=== PATIENT | male | born 1960 | race Caucasian/White ===

== ENCOUNTER 2024-04-03 00:35 | Inpatient (IN) | payer OTHER, SELFPAY ==
[2024-04-03] VITALS (18 sets, daily range): BP systolic 113–154; BP diastolic 75–91; PULSE 72–100; RESP 14–20; TEMP 36.4–37.4; O2SAT 92–98; BMI 29.8
--- NOTE | 2024-04-03 | ECG_ITS ---
Test Reason : CHEST PAIN Blood Pressure : / mmHG Vent. Rate : 084 BPM Atrial Rate : 084 BPM P-R Int : 148 ms QRS Dur : 088 ms QT Int : 352 ms P-R-T Axes : 038 -24 037 degrees QTc Int : 415 ms Normal sinus rhythm Normal ECG No previous ECGs available Referred By: Generic ED Physician Electronically Signed By:LICHA HILL MD
--- NOTE | ~2024-04-03 | US_ITS ---
EXAMINATION: US ABDOMEN LIMITED CLINICAL INFORMATION: Pain.. COMPARISON: None available. TECHNIQUE: Real-time imaging of the right upper quadrant abdominal viscera. FINDINGS: PANCREAS: Not assessed LIVER: The visualized liver is normal in appearance. GALLBLADDER: Multiple gallstones are noted including a 2.5 cm calculus at the neck of the gallbladder. There is a small to moderate amount of faintly echogenic nonshadowing material within the gallbladder as well consistent with sludge. There is gallbladder wall thickening up to 4 mm. A positive Camp's sign was reported by the special procedures technologist. COMMON BILE DUCT: Normal in caliber measuring 0.5 cm in diameter. RIGHT KIDNEY: Not assessed. FREE FLUID: None. US/US abdomen limited IMPRESSION: Cholelithiasis with gallbladder wall thickening and a positive Camp's sign. These findings are concerning for acute cholecystitis.
--- NOTE | ~2024-04-03 | CT_ITS ---
EXAMINATION: CT ABDOMEN AND PELVIS WITH CONTRAST CLINICAL INFORMATION: Right upper quadrant pain. COMPARISON: None available. TECHNIQUE: Multidetector volumetric images were obtained from the superior aspect of the liver through the pubic symphysis following administration 85 mL of Omnipaque 350 intravenous contrast. Sagittal and coronal reformatted images were obtained on the technologist's workstation. Oral contrast: No This CT examination was performed using dose optimization techniques as appropriate, variously including the following: *Automated exposure control *Adjustment of mA and/or kV according to patient size (this includes techniques or standardized protocols for targeted exams where dose is matched to indication/reason for exam; i.e. extremities or head) *Use of iterative reconstruction technique DLP: 650 mGy-cm FINDINGS: LUNG BASES: The visualized lung bases are unremarkable. LIVER, GALLBLADDER, AND BILIARY TREE: The liver is normal in size, shape, and attenuation. No focal hepatic lesion or biliary ductal dilatation is present. There are a few gallstones within a mildly distended gallbladder with a 6 mm calculus at the neck of the gallbladder. PANCREAS: Unremarkable. SPLEEN: Unremarkable. ADRENAL GLANDS: Unremarkable. KIDNEYS AND URETERS: The kidneys are normal in size, shape, and attenuation. No hydronephrosis, hydroureter, or calculi seen. No perinephric stranding. BLADDER: Unremarkable. GASTROINTESTINAL TRACT: There are diverticula of the descending and sigmoid colon without diverticulitis. The appendix is visualized and is within normal limits. ABDOMINAL WALL: No significant hernia is appreciated. LYMPH NODES: Normal. VASCULAR: Mild atherosclerotic plaque of the abdominal aorta and proximal branches. PELVIC VISCERA: Unremarkable. OSSEOUS STRUCTURES: Unremarkable. CT/CT abdomen pelvis w IV con IMPRESSION: 1. Cholelithiasis with a 6 mm calculus at the neck of the gallbladder and mild gallbladder distention. Cholecystitis considered. 2. Diverticulosis of the descending and sigmoid colon without diverticulitis. Fleischner guidelines were followed.
[2024-04-03 01:04] LABS: MANUAL DIFF FLAG NO
[2024-04-03 01:18] LABS: Basophils Absolute Auto 0.1 X10*3/uL (0.0-0.2); Basophils Percent Auto 0.7 % (0-2); Eosinophils Absolute Auto 0.5 X10*3/uL (0.0-0.4); Eosinophils Percent Auto 4.6 % (0-4); Hematocrit 44.8 % (42.0-52.0); Hemoglobin 15.7 g/dl (14.0-18.0); Imm Gran Abs Auto 0.07 X10*3/uL (0.00-0.03); Imm Gran Pct Auto 0.7 % (0.0-0.4); Lymphocytes Absolute Auto 1.7 X10*3/uL (1.2-4.9); Lymphocytes Percent Auto 17.4 % (20-40); Mean Corpuscular Hemoglobin 31.8 pg (27.0-33.0); Mean Corpuscular Volume 90.9 fL (80.0-98.0); Monocytes Absolute Auto 1.4 X10*3/uL (0.1-1.2); Monocytes Percent Auto 14.2 % (2-11); Neutrophils Absolute Auto 6.2 x10*3/uL (2.0-8.3); Neutrophils Percent Auto 62.4 % (45-73); Platelet Count 251 X10*3/uL (160-400); Red Blood Count 4.93 X10*6/uL (4.60-5.80); Red Cell Distribution Width 12.8 % (11.0-16.0); White Blood Count 9.9 X10*3/uL (4.8-10.8)
[2024-04-03 01:23] LABS: Anion Gap 16 (12-20); Blood Urea Nitrogen 17 mg/dL (9-16); Calcium 9.9 mg/dL (8.4-10.2); Carbon Dioxide 24 mmol/L (22-29); Chloride 104 mmol/L (96-108); Estimated Glomerular Filt Rate > 60; Glucose Random 128 mg/dL (60-115); Potassium 4.2 mmol/L (3.3-5.1); Sodium 140 mmol/L (135-145)
[2024-04-03 01:32] LABS: Troponin-I High Sensitivity 7.2 ng/L (<3.5-35.0)
[2024-04-03 01:42] LABS: Alanine Aminotransferase 37 U/L (0-40); Albumin Level 4.1 g/dL (3.5-5.0); Alkaline Phosphatase 74 U/L (39-117); Aspartate Amino Transferase 25 U/L (5-37); Bilirubin Direct 0.2 mg/dL (0.0-0.5); Bilirubin Total 0.5 mg/dL (0.0-1.0); Ethanol < 10 mg/dL; Lipase 52 U/L (8-78); Total Protein 7.8 g/dL (6.5-8.0)
[2024-04-03] MEDS: iohexoL 350 MG/ML 100 ML INFUS..BTL 85 ML IV (01:52)
--- NOTE | 2024-04-03 01:56 | ED.CHESTPAIN ---
HPI - Chest Pain General Chief Complaint: Chest Pain Stated Complaint: cp Time Seen by Provider: 04/03/24 01:10 Source: patient Mode of arrival: EMS Limitations: no limitations History of Present Illness HPI narrative: 63 yo male with PMH of HTN, no prior surgeries here with c/o 2 days of intermittent RUQ pain radiates across abdomen to the back resolved throughout the day on Monday took some benadryl to sleep then woke up again with the pain around midnight. He has some nausea. He drinks heavily on the weekends MD complaint: chest pain (epigastric pain) Onset (ago): day(s) (2) Timing of current episode: episodic Prior episodes: No Onset: during rest Pain location: epigastric Pain radiation: back and abdomen Severity: moderate Quality: tightness and sharp Relieving factors: nothing Exacerbating factors: nothing Associated symptoms: nausea Treatment prior to arrival: none Related Data Allergies Allergy/AdvReac Type Severity Reaction Status Date / Time lamictal Allergy Severe Rash Uncoded 04/03/24 01:29 Review of Systems Review of Systems: Constitutional : No Weight loss, No Fever, No Chills ENT/Mouth : No sore throat, No Rhinorrhea Eyes: No Swelling, No Redness Cardiovascular : pos Chest Pain, No SOB, NoEdema Respiratory : No Cough, No Sputum, No Wheezing Gastrointestinal : Positive Nausea, no Vomiting, no Diarrhea, positive abdominal Pain, No Hematochezia, No Melena Genitourinary : No Dysuria, No Urinary Frequency, No Hematuria, No Urgency Musculoskeletal : No joint pain, No Myalgias, No Joint Swelling Skin : No Skin Lesions, No rash Neuro : No Weakness, No Numbness, No Dizziness, No Headache Psych : No Anxiety/Panic, No Depression Heme/Lymph: No Bruising, No Lymphadenopathy Endocrine : No Polyuria, No Polydipsia All other systems reviewed and are negative. [facility] Past Medical History Attestation statement: The following information was validated with the patient. Medical History HTN (hypertension) Social History Social History (Updated 04/03/24 @ 02:29 by Bettie Kee DO) Alcohol intake: current Patient Tobacco Use Status: Never used Tobacco Use of substances other than those prescribed or required for medical reasons: No Advance Directives: No Advance Directives Information Provided: No Physical Exam Vital Signs: Vital Signs: Last Vital Signs Temp 98.6 F 04/03/24 04:38 Pulse 72 04/03/24 04:38 Resp 16 04/03/24 04:38 BP 122/86 04/03/24 04:38 Pulse Ox 96 04/03/24 04:38 O2 Del Method Room Air 04/03/24 04:38 BMI result Body Mass Index 29.8 Appearance: Alert. Oriented X3. No acute distress. Eyes: Pupils equal, round and reactive to light. ENT: Pharynx normal. Neck: Normal inspection. Neck supple. CVS: Normal heart rate and rhythm. Pulses normal. Respiratory: No respiratory distress. Breath sounds normal. Abdomen: Soft and moderate RUQ and epigastric pain + fernandez's sign Skin: Skin warm and dry. Normal skin color. Normal skin turgor. Extremities: No lower extremity edema. No calf ttp Neuro: Oriented X 3. No motor deficit. No sensory deficit. Medications Administered Discontinued Medications Generic Name Dose Route Start Last Admin Trade Name Freq PRN Reason Stop Dose Admin Sodium Chloride 1,000 mls @ 999 mls/hr 04/03/24 01:26 04/03/24 03:03 Ns IV 04/03/24 02:26 Infused .Q1H1M ONE Infusion Piperacillin Sod/Tazobactam 50 mls @ 100 mls/hr 04/03/24 04:11 04/03/24 04:31 Sod 3.375 gm/ Sodium Chloride IV 04/03/24 04:40 100 mls/hr ONCE ONE Administration Iohexol 85 ml 04/03/24 01:52 04/03/24 01:52 Iohexol 350 Mg/Ml 100 Ml Infus..Btl IV 04/03/24 01:53 85 ml ONCE ONE Administration Morphine Sulfate 4 mg 04/03/24 01:26 04/03/24 02:03 Morphine Sulfate 4 Mg/Ml Cartridge IVPUSH 04/03/24 01:27 4 mg ONCE ONE Administration Protocol Ondansetron HCl 4 mg 04/03/24 01:26 04/03/24 02:02 Ondansetron Hcl 4 Mg/2 Ml Vial IVPUSH 04/03/24 01:27 4 mg ONCE ONE Administration Medical Decision Making Medical Decision Making MDM Narrative: 63 yo male with hx of HTN here with on and off upper abdominal pain radiating to the back since Monday now worse since midnight at this time has reproduceable upper abdominal pain at this time basic labs, EKG, troponin x 1, CT scan of abdomen for pancreatitis, biliary colic, PUD. IV morphine for pain Differential Diagnosis Differential Diagnoses: The differential diagnosis associated with the presentation includes pancreatitis, PUD, biliary colic, atypical ACS Admission/Observation Consideration of admission/observation: Escalation of care including admission/observation considered will admit for cholecystitis Consult Healthcare Provider Management of the patient was discussed with: Continuing Education Specialist (Dr. Shaver to admit) Lab Data MDM Lab Attestation statement: I reviewed the patient's lab results. 04/03/24 01:00 04/03/24 01:00 Labs: Lab Results 04/03/24 Range/Units 01:00 WBC 9.9 (4.8-10.8) X10*3/uL RBC 4.93 (4.60-5.80) X10*6/uL Hgb 15.7 (14.0-18.0) g/dl Hct 44.8 (42.0-52.0) % MCV 90.9 (80.0-98.0) fL MCH 31.8 (27.0-33.0) pg MCHC 35.0 (31.0-36.0) g/dl RDW 12.8 (11.0-16.0) % Plt Count 251 (160-400) X10*3/uL MPV 11.0 (9.4-12.4) fL Immature Gran % (Auto) 0.7 H (0.0-0.4) % Neut % (Auto) 62.4 (45-73) % Lymph % (Auto) 17.4 L (20-40) % [place] % (Auto) 14.2 H (2-11) % Eos % (Auto) 4.6 H (0-4) % Baso % (Auto) 0.7 (0-2) % Lymph # (Auto) 1.7 (1.2-4.9) X10*3/uL [place] # (Auto) 1.4 H (0.1-1.2) X10*3/uL Eos # (Auto) 0.5 H (0.0-0.4) X10*3/uL Baso # (Auto) 0.1 (0.0-0.2) X10*3/uL Abs Immat Gran (auto) 0.07 H (0.00-0.03) X10*3/uL Absolute Neuts (auto) 6.2 (2.0-8.3) x10*3/uL Absolute Nucleated RBC 0.000 (0.0-0.012) X10*3/uL Nucleated RBC % (auto) 0.0 (0.0-0.2) /100WBC Sodium 140 (135-145) mmol/L Potassium 4.2 (3.3-5.1) mmol/L Chloride 104 (96-108) mmol/L Carbon Dioxide 24 (22-29) mmol/L Anion Gap 16 (12-20) BUN 17 H (9-16) mg/dL Creatinine 1.13 (0.5-1.4) mg/dL Estim Creat Clear Calc TNP Estimated GFR > 60 Random Glucose 128 H (60-115) mg/dL Calcium 9.9 (8.4-10.2) mg/dL Total Bilirubin 0.5 (0.0-1.0) mg/dL Direct Bilirubin 0.2 (0.0-0.5) mg/dL AST 25 (5-37) U/L ALT 37 (0-40) U/L Alkaline Phosphatase 74 (39-117) U/L Troponin I High Sens 7.2 (<3.5-35.0) ng/L Total Protein 7.8 (6.5-8.0) g/dL Albumin 4.1 (3.5-5.0) g/dL Lipase 52 (8-78) U/L Ethyl Alcohol < 10 mg/dL Independent Interpretation I performed an independent interpretation of an: EKG, Ultrasound (+ cholecystitis) and CT Scan (+ kacy) Interpretation: Rate: 84 Rhythm: NSR [place]: normal Normal P waves. Normal DOMINGO. Normal QRS complex. ST T wave: normal no CABRERA qTC: 415 prior studies: no acute ischemia The study has been interpreted contemporaneously by me. . Radiology Impression Discussion of test interpretation with radiology: I have reviewed the radiologist's reading. Independent Historian Clinical information obtained from an independent historian. History obtained from or confirmed by: EMS Critical Care Time Critical Care Time Critical Care Time: Yes Total Critical Care Time: 45 Attestation: repeat IV morphine with improvement in pain, consult, admission I attest to this time spent taking care of the patient Discharge Plan Discharge Clinical Impression: Acute cholecystitis Patient Disposition: Admitted As Inpatient Print Language: Polish
[2024-04-03] MEDS: 0.9 % Sodium Chloride 1,000 ML 999 ML IV (02:02)
[2024-04-03] MEDS: ondansetron HCL 4 MG/2 ML VIAL IVPUSH (02:02)
[2024-04-03] MEDS: Morphine Sulfate 4 MG/ML CARTRIDGE IVPUSH ×4 (02:03→13:36)
[2024-04-03] MEDS: Piperacillin Sodium/Tazobactam 3.375 GM in 0.9 % Sodium Chloride 50 ML IV ×3 (04:31→21:37)
[2024-04-03 05:20] LABS: INTERNATIONAL NORM RATIO 1.1 (0.9-1.1); Prothrombin Time 13.8 SEC (11.1-13.3)
[2024-04-03] MEDS: 0.9 % Sodium Chloride 1,000 ML 100 ML IVCONT ×2 (06:15→18:32)
--- OUTSIDE RECORDS SUMMARY | 2024-04-03 06:50 | XMS_ITS | Patient Health Record ---
Author Organization [facility] [place] Address [address] [place], [place] [id number] Care Team Providers Care Soap Boiler Name Role Phone Tomas Walker Primary Care Provider Horace Talbert Unavailable [phone] ALLERGIES Allergen (clinical drug ingredient) Drug/Non Drug Allergy documented on EMR Reaction Allergy Type Onset Date Status lamotrigine Lamotrigine rash Drug Allergy Act atiya REASON FOR REFERRAL No Information MEDICATIONS Medication SIG (Take, Route, Frequency, Duration) Notes Start Date End Date Status Omeprazole 20 MG 1 capsule Orally Onc e a day for 30 day(s) Active Fluticasone Propionate 50 MCG/ACT 1 spray in each nostril Nasally Once a day for 30 day(s) Active IMMUNIZATIONS Vaccine Route Administration Date Status Comme nts Flucelvax Quadrivelant (Commerical) Unknown 11/21/2018 Administered SOCIAL HISTORY Sex Assigned At : Social History Observation Description Sex Assigned At Unknown PROBLEMS Problem Type ICD Code Onset Dates Problem Status W/U Status Risk SNOMED Code Notes Problem Other viral agents as the cause of diseases classified elsewhere (B97.89) Active confirmed 788733722 Problem Acute upper respiratory infection, unspecified (J06.9) Active confirmed 611324316 Problem Cough (R05) Active confirmed 27066824 Problem Heartburn (R12) Active confirmed 151166 00 Problem Hypoxia (R09.02) Active confirmed 36123 6002 Problem History of tobacco use (Z87.891) Active confirmed 331420211 Problem Essential hypertension (I10) Active confirmed 02717681 Problem Gastroesophageal reflux disease, esophagitis presence not specified (K21.9) Active confirmed 297373532 PLAN OF TREATMENT No Information Insurance Providers Payer Name Payer Address Payer Phone Subscriber Number Group Number Insured Name Patient Relationship to Insured Coverage Start Date Coverage End Date [place] [facility] [place] [address] [address] [place] [phone] [id number] Harris Osman Self - patient is the insured MEDICAL (GENERAL) HISTORY Medical History History ICD Code COPD, no prior PFTs available Nephrolithiasis Obesity Insomnia GERD
--- NOTE | 2024-04-03 08:09 | PM.HPGS ---
History of Present Illness History of Present Illness Date of Service: 04/03/24 Chief complaint: Abdo pain Narrative: Harris Zepeda is a 63 year old male who presents with progressive worsening right upper quadrant pain over the last 2 days time. Because of worsening of symptoms, he presents to the emergency department. Extensive workup including sonogram demonstrates findings consistent with acute cholecystitis. Patient has never been jaundiced before. He otherwise has no prior GI issues or complaints. Chart was reviewed and patient evaluated PMFSH Past Medical History Medical History HTN (hypertension) Social History Social History (Updated 04/03/24 @ 02:29 by Bettie Kee DO) Alcohol intake: current Patient Tobacco Use Status: Never used Tobacco Use of substances other than those prescribed or required for medical reasons: No Advance Directives: No Advance Directives Information Provided: No Meds Allergies Allergy/AdvReac Type Severity Reaction Status Date / Time lamictal Allergy Severe Rash Uncoded 04/03/24 01:29 Active Medications: Current Medications Acetaminophen (Acetaminophen 325 Mg Tablet) 650 mg PO Q6H PRN PRN Reason: Pain, Mild (Pain Scale 1-3) Enoxaparin Sodium (Enoxaparin Sodium 40 Mg/0.4 Ml Syringe) 40 mg SUBCUT Q24H MARKUS Sodium Chloride (Ns) 1,000 mls @ 100 mls/hr IVCONT .Q10H MARKUS Last Admin: 04/03/24 06:15 Dose: 100 mls/hr Sodium Chloride (Ns) 1,000 mls @ 100 mls/hr IVCONT .Q10H MARKUS Piperacillin Sod/Tazobactam (Sod 3.375 gm/ Sodium Chloride) 50 mls @ 100 mls/hr IV Q6H MARKUS Morphine Sulfate (Morphine Sulfate 4 Mg/Ml Cartridge) 4 mg IVPUSH RQ4H PRN; Protocol PRN Reason: Pain, Severe (Pain Scale 7-10) Ondansetron HCl (Ondansetron Hcl 4 Mg/2 Ml Vial) 4 mg IVPUSH Q8H PRN PRN Reason: Nausea and Vomiting Sodium Chloride (0.9 % Sodium Chloride Flush 3 Ml Syringe) 3 ml IVFLUSH QSHIFT MARKUS Physical Exam Vital Signs: Vital Signs: Last Vital Signs Temp 98.1 F 04/03/24 06:12 Pulse 79 04/03/24 06:12 Resp 16 04/03/24 06:12 BP 142/83 H 04/03/24 06:12 Pulse Ox 92 04/03/24 06:12 O2 Del Method Room Air 04/03/24 06:12 BMI result Body Mass Index 29.8 Eyes: Other: Anicteric Chest: Other: Chest breath sounds bilaterally, HS 1 in 2 GI: Other: Corpulent abdomen. Marked right upper quadrant tenderness and positive Camp sign Results Results Labs: Short CBC 04/03/24 Range/Units 01:00 WBC 9.9 (4.8-10.8) X10*3/uL Hgb 15.7 (14.0-18.0) g/dl Hct 44.8 (42.0-52.0) % Plt Count 251 (160-400) X10*3/uL BMP 04/03/24 01:00 Sodium 140 Potassium 4.2 Chloride 104 Carbon Dioxide 24 BUN 17 H Creatinine 1.13 Calcium 9.9 Liver Function 04/03/24 Range/Units 01:00 Total Bilirubin 0.5 (0.0-1.0) mg/dL Direct Bilirubin 0.2 (0.0-0.5) mg/dL AST 25 (5-37) U/L ALT 37 (0-40) U/L Alkaline Phosphatase 74 (39-117) U/L Albumin 4.1 (3.5-5.0) g/dL Assessment and Plan (1) Acute cholecystitis: Status: Acute Plan Patient has the diagnosis of acute cholecystitis. Risks, benefits, and alternatives of laparoscopic possible open cholecystectomy reviewed with the patient and included but not limited to bleeding, infection, recurrence of symptoms, numbness, pain, scarring, bowel or bile duct injury or leak and the patient wishes to proceed. All questions answered. Arrangements were made for the procedure for today as an add on. Quality Stroke Does the patient have a stroke diagnosis?: No VTE Prior VTE?: No VTE Risk Level:: Surgical - low VTE Device Contraindication: N/A - Device Ordered VTE Drug Contraindication: N/A - Med Ordered Procedures Date of Service Date of Service: 04/03/24
--- NOTE | 2024-04-03 09:31 | PC.NURSE ---
pt is alert and oriented, skin pwd, respirations even and unlabored, pt reports right upper/mid abd pain / no nausea at this time, vs stable, plan for the pt to go to surgery but no time has been assigned
[2024-04-03 10:40] LABS: Creatinine Clr Calc Pharmacy 98.3; Estimated Glomerular Filt Rate > 60
--- NOTE | 2024-04-03 10:41 | PHA.MEDREC ---
Pharmacy Consult ? Medication Reconciliation Pharmacy has completed the medication reconciliation. Spoke with patient to confirm medications. Pt showed us a list he had on his phone.
--- NOTE | 2024-04-03 12:22 | MHC.CM.PN ---
Met with patient in regards from d/c planning. Patient lives with his and 2 grown special needs children, ambulates independently and had no services prior to coming to the hospital. No services anticipated to be needed becuase patient is not homebound. PCP verified. Patient's will transport patient home when medically stable. Continue to monitor for d/c needs.
--- NOTE | 2024-04-03 13:26 | P.CONAN_ITS ---
HPI - Anesthesia Eval Consult details Narrative: for lap cholecystics PMFSH Active Problems Active Problems: All Active Problems Acute cholecystitis (Acute) Past Medical History Medical History HTN (hypertension) Family History Family history of problems with anesthesia: No Surgical History History of Problems with Anesthesia: No Social History Social History Household Members: Spouse Housing: House Do you presently have visiting nurse or other home services: No Alcohol intake: current Patient Tobacco Use Status: Never used Tobacco Use of substances other than those prescribed or required for medical reasons: No Have you been hit, kicked, punched, or otherwise hurt by someone within the past year? If so, by whom?: No Do you feel safe in your current relationship?: Yes Is there a partner from a previous relationship who is making you feel unsafe now?: No Are you made to feel afraid or neglected: No Advance Directives: No Advance Directives Information Provided: No Do you have a plan to hurt others: No Plan Recently lost weight without trying: No Nutrition Risks: No Nutritional Risk Poor oral hygiene: No service: No Meds Allergies Allergy/AdvReac Type Severity Reaction Status Date / Time lamictal Allergy Severe Rash Uncoded 04/03/24 01:29 Active Medications: Current Medications Acetaminophen (Acetaminophen 325 Mg Tablet) 650 mg PO Q6H PRN PRN Reason: Pain, Mild (Pain Scale 1-3) Enoxaparin Sodium (Enoxaparin Sodium 40 Mg/0.4 Ml Syringe) 40 mg SUBCUT Q24H [facility] Last Admin: 04/03/24 09:07 Dose: Not Given Sodium Chloride (Ns) 1,000 mls @ 100 mls/hr IVCONT .Q10H [facility] Last Admin: 04/03/24 06:15 Dose: 100 mls/hr Sodium Chloride (Ns) 1,000 mls @ 100 mls/hr IVCONT .Q10H [facility] Last Admin: 04/03/24 09:06 Dose: Not Given Piperacillin Sod/Tazobactam (Sod 3.375 gm/ Sodium Chloride) 50 mls @ 100 mls/hr IV Q6H [facility] Last Admin: 04/03/24 10:30 Dose: 100 mls/hr Morphine Sulfate (Morphine Sulfate 4 Mg/Ml Cartridge) 4 mg IVPUSH RQ4H PRN; Protocol PRN Reason: Pain, Severe (Pain Scale 7-10) Last Admin: 04/03/24 09:24 Dose: 4 mg Ondansetron HCl (Ondansetron Hcl 4 Mg/2 Ml Vial) 4 mg IVPUSH Q8H PRN PRN Reason: Nausea and Vomiting Sodium Chloride (0.9 % Sodium Chloride Flush 3 Ml Syringe) 3 ml IVFLUSH QSHIFT [facility] Last Admin: 04/03/24 09:03 Dose: Not Given Home Medications ?Medication ?Instructions ?Recorded ?Confirmed ?Last Taken ?Type aspirin 81 mg tablet,delayed 81 mg PO DAILY 04/03/24 04/03/24 Unknown History release atorvastatin 80 mg tablet 80 mg PO QA 04/03/24 04/03/24 Unknown History famotidine 40 mg tablet 40 mg PO BEDTIME 04/03/24 04/03/24 Unknown History lisinopril 20 1 tab PO QA 04/03/24 04/03/24 Unknown History mg-hydrochlorothiazide 25 mg tablet omeprazole 40 mg capsule,delayed 40 mg PO QA 04/03/24 04/03/24 Unknown History release Exam Height,Weight and Vital Signs: Height 5 ft 10 in Weight 94.347 kg Last Vital Signs Temp 98.1 F 04/03/24 06:12 Pulse 72 04/03/24 09:23 Resp 20 04/03/24 09:23 BP 154/91 H 04/03/24 09:23 Pulse Ox 96 04/03/24 09:23 O2 Del Method Room Air 04/03/24 09:23 Pertinent Lab Results Pertinent Lab Results: Laboratory Tests 04/03/24 04/03/24 04/03/24 01:00 05:07 10:17 WBC 9.9 RBC 4.93 Hgb 15.7 Hct 44.8 MCV 90.9 MCH 31.8 MCHC 35.0 RDW 12.8 Plt Count 251 MPV 11.0 Immature Gran % (Auto) 0.7 H Neut % (Auto) 62.4 Lymph % (Auto) 17.4 L [place] % (Auto) 14.2 H Eos % (Auto) 4.6 H Baso % (Auto) 0.7 Lymph # (Auto) 1.7 [place] # (Auto) 1.4 H Eos # (Auto) 0.5 H Baso # (Auto) 0.1 Abs Immat Gran (auto) 0.07 H Absolute Neuts (auto) 6.2 Absolute Nucleated RBC 0.000 Nucleated RBC % (auto) 0.0 PT 13.8 H INR 1.1 Sodium 140 Potassium 4.2 Chloride 104 Carbon Dioxide 24 Anion Gap 16 BUN 17 H Creatinine 1.13 0.91 Estim Creat Clear Calc TNP 98.3 Estimated GFR > 60 > 60 Random Glucose 128 H Calcium 9.9 Total Bilirubin 0.5 Direct Bilirubin 0.2 AST 25 ALT 37 Alkaline Phosphatase 74 Troponin I High Sens 7.2 Total Protein 7.8 Albumin 4.1 Lipase 52 Ethyl Alcohol < 10 Airway Mallampati Class: III TM Dist: >3cm Neck ROM: Full Heart: rrr Lungs: cta Assessment and Plan Assessment Anesthesia Assessment: Anesthesia Plan Discussed and Chart Reviewed Final Anesthetic Review Family History of Problems with Anesthesia: No History of Problems with Anesthesia: No NPO: Yes ASA Class: III Final Preanesthetic Review: No Changes in Pt Med Stat, Meds/Allgs Chart Reviewed, Consent Obtained/Reviewed and Anes Risks/Benef Reviewed Patient Risk: Intermediate Procedure Risk: Intermediate Anesthetic Plan Anesthetic Plan: GA Disposition: Standard PACU
--- NOTE | 2024-04-03 13:51 | PC.NURSE ---
Report given to short stay surgery, plan for patient to get cholecystectomy today. Patient medicated with Morphine prior to transfer, patient aware of plan and is cooperative.
--- NOTE | 2024-04-03 14:00 | PM.EVENT ---
Event Note Date of Service: 04/03/24 Event Note: 63-year-old male patient, originally from [place], [place], presenting with complaints of epigastric and right upper quadrant abdominal pain. The pain is associated with nausea without vomiting. He denies fever or chills. The pain persisted and as a result presented to the emergency department for further evaluation. In the emergency department was noted to have a normal WBC however workup with ultrasound and CT abdomen and pelvis revealed a distended mildly thickened gallbladder wall, with a gallstone at the neck of the gallbladder. A sonographic Camp sign was identified. Findings were suggestive of acute cholecystitis due to cholelithiasis. His past medical history significant for hypertension, hypercholesterolemia and GERD. He is allergic to Lamictal (rash). On examination he is alert and awake, in no acute distress, lungs are clear to auscultation bilaterally. Abdomen is mildly distended and tender in the right upper quadrant. There is a positive Camp sign. No scars or hernias are identified. The patient's history, exam, and radiologic studies are consistent with acute cholecystitis due to cholelithiasis. I reviewed the options including non operative with antibiotic treatment verses cholecystectomy. After a review of the procedure, risks, and alternatives, he consents to a laparoscopic or possible open cholecystectomy. He has been added onto the operative schedule for today. Time Spent With Patient Time: Total time managing care of this patient today ____ minutes.
--- NOTE | 2024-04-03 14:10 | P.CONAN_ITS ---
[facility] Active Problems Active Problems: All Active Problems Acute cholecystitis (Acute) Past Medical History Medical History (Updated 04/03/24 @ 14:06 by Mary Starr RN) Finger abrasion HTN (hypertension) Family History Family history of problems with anesthesia: No Surgical History History of Problems with Anesthesia: No Social History Social History Household Members: Spouse Housing: House Do you presently have visiting nurse or other home services: No Alcohol intake: current Alcohol intake frequency: does not drink Patient Tobacco Use Status: Never used Tobacco service: No Meds Allergies Allergy/AdvReac Type Severity Reaction Status Date / Time lamictal Allergy Severe Rash Uncoded 04/03/24 01:29 Active Medications: Current Medications Acetaminophen (Acetaminophen 325 Mg Tablet) 650 mg PO Q6H PRN PRN Reason: Pain, Mild (Pain Scale 1-3) Fentanyl (Fentanyl Citrate/Pf 100 Mcg/2 Ml Vial) 25 mcg IVPUSH Q5M PRN; Protocol PRN Reason: Pain, Moderate(Pain Scale 4-6) Stop: 04/03/24 19:53 Sodium Chloride (Ns) 1,000 mls @ 100 mls/hr IVCONT .Q10H [facility] Last Admin: 04/03/24 06:15 Dose: 100 mls/hr Sodium Chloride (Ns) 1,000 mls @ 100 mls/hr IVCONT .Q10H [facility] Last Admin: 04/03/24 09:06 Dose: Not Given Piperacillin Sod/Tazobactam (Sod 3.375 gm/ Sodium Chloride) 50 mls @ 100 mls/hr IV Q6H [facility] Last Infusion: 04/03/24 12:00 Dose: Infused Morphine Sulfate (Morphine Sulfate 4 Mg/Ml Cartridge) 4 mg IVPUSH RQ4H PRN; Protocol PRN Reason: Pain, Severe (Pain Scale 7-10) Last Admin: 04/03/24 13:36 Dose: 4 mg Ondansetron HCl (Ondansetron Hcl 4 Mg/2 Ml Vial) 4 mg IVPUSH Q8H PRN PRN Reason: Nausea and Vomiting Ondansetron HCl (Ondansetron Hcl 4 Mg/2 Ml Vial) 4 mg IVPUSH ONCE PRN PRN Reason: Nausea and Vomiting Stop: 04/03/24 19:53 Sodium Chloride (0.9 % Sodium Chloride Flush 3 Ml Syringe) 3 ml IVFLUSH QSHIFT [facility] Last Admin: 04/03/24 09:03 Dose: Not Given Home Medications ?Medication ?Instructions ?Recorded ?Confirmed ?Last Taken ?Type aspirin 81 mg tablet,delayed 81 mg PO DAILY 04/03/24 04/03/24 04/02/24 History release atorvastatin 80 mg tablet 80 mg PO QAM 04/03/24 04/03/24 Unknown History famotidine 40 mg tablet 40 mg PO BEDTIME 04/03/24 04/03/24 Unknown History lisinopril 20 1 tab PO QA 04/03/24 04/03/24 Unknown History mg-hydrochlorothiazide 25 mg tablet omeprazole 40 mg capsule,delayed 40 mg PO QA 04/03/24 04/03/24 Unknown History release Exam Height,Weight and Vital Signs: Height 5 ft 10 in Weight 94.347 kg Last Vital Signs Temp 98.4 F 04/03/24 13:55 Pulse 86 04/03/24 13:55 Resp 20 04/03/24 13:55 BP 149/83 H 04/03/24 13:55 Pulse Ox 97 04/03/24 13:55 O2 Del Method Room Air 04/03/24 13:55 Pertinent Lab Results Pertinent Lab Results: Laboratory Tests 04/03/24 04/03/24 04/03/24 01:00 05:07 10:17 WBC ,, , 9.9 RBC 4.93 Hgb 15.7 Hct 44.8 MCV 90.9 MCH 31.8 MCHC 35.0 RDW 12.8 Plt Count 251 MPV 11.0 Immature Gran % (Auto) 0.7 H Neut % (Auto) 62.4 Lymph % (Auto) 17.4 L [place] % (Auto) 14.2 H Eos % (Auto) 4.6 H Baso % (Auto) 0.7 Lymph # (Auto) 1.7 [place] # (Auto) 1.4 H Eos # (Auto) 0.5 H Baso # (Auto) 0.1 Abs Immat Gran (auto) 0.07 H Absolute Neuts (auto) 6.2 Absolute Nucleated RBC 0.000 Nucleated RBC % (auto) 0.0 PT 13.8 H INR 1.1 Sodium 140 Potassium 4.2 Chloride 104 Carbon Dioxide 24 Anion Gap 16 BUN 17 H Creatinine 1.13 0.91 Estim Creat Clear Calc TNP 98.3 Estimated GFR > 60 > 60 Random Glucose 128 H Calcium 9.9 Total Bilirubin 0.5 Direct Bilirubin 0.2 AST 25 ALT 37 Alkaline Phosphatase 74 Troponin I High Sens 7.2 Total Protein 7.8 Albumin 4.1 Lipase 52 Ethyl Alcohol < 10 Airway Mallampati Class: III TM Dist: >3cm Neck ROM: Full Assessment and Plan Assessment Anesthesia Assessment: Anesthesia Plan Discussed and Chart Reviewed Final Anesthetic Review Family History of Problems with Anesthesia: No History of Problems with Anesthesia: No NPO: Yes ASA Class: II and Emergency Final Preanesthetic Review: No Changes in Pt Med Stat, Meds/Allgs Chart Reviewed, Consent Obtained/Reviewed and Anes Risks/Benef Reviewed Patient Risk: Intermediate Procedure Risk: Intermediate Anesthetic Plan Anesthetic Plan: GA Disposition: Standard PACU
--- NOTE | 2024-04-03 16:16 | W.PM.OPN ---
Operative Note Operative Note Date of Service: 04/03/24 Narrative: Preoperative diagnosis: Acute cholecystitis due to cholelithiasis Postoperative diagnosis: Same Procedure: Laparoscopic cholecystectomy Surgeon: Kameron Velásquez MD Clinical Laboratory Director: CHRYSTAL Redmond, SHAHRZAD Lima Anesthesia: General endotracheal Indications for procedure: 63-year-old male patient presenting with complaints of abdominal pain in the epigastrium and right upper quadrant found to have tenderness in the right upper quadrant. Ultrasound and CT confirmed cholelithiasis with stones at the neck of the gallbladder. Patient also had sonographic Camp sign. Operative findings: Acutely inflamed and obstructed gallbladder, with purulent bile. Surrounding phlegmon was noted. Specimen: gallbladder Estimated blood loss: 20 mL Complications: None Drain: DONNA 10. To bulb suctioned Procedure details: Patient was brought to the OR and placed in a supine position. After administering general anesthesia the patient's abdomen was prepped with ChloraPrep and draped in a sterile fashion. A surgical time-out was called the consent confirmed. Patient received preoperative antibiotics and Venodyne boots were in place. Local anesthesia consisting of 0.5% Sensorcaine without epinephrine was infiltrated in a periumbilical region. A 5 mm incision was made above the umbilicus in a transverse fashion. The Veress needle was then inserted while elevating abdominal cavity with towel clips. After positive drop test the abdomen was insufflated to a pressure of 15 mm of mercury. The Veress needle was then removed and a 5 mm trocar inserted. The camera was inserted in the abdomen explored. A 12 mm trocar was then placed in the epigastrium. Two 5 mm trocars placed in the right upper quadrant by the rehabilitation assistant. The patient was placed in reverse Trendelenburg positioning and rotated to the left. The gallbladder was noted to be markedly distended therefore the endoscopic needle was used to drain the gallbladder. This allowed grasping of the gallbladder at the fundus. The gallbladder was then retracted cephalad by the rehabilitation assistant. The infundibulum was then grasped and retracted away from the liver bed, also by the rehabilitation assistant. The Dolphin dissector was then used by the surgeon to dissect the peritoneum off the infundibulum to reveal the junction with the cystic duct. Cystic artery was noted slightly medial and posterior to the cystic duct. After obtaining a critical view the cystic duct was doubly clipped and divided. The cystic artery was then doubly clipped and divided. The gallbladder was then dissected off the liver bed using electrocautery with an L hook. Hemostasis was assured all times using the electrocautery. When the gallbladder is completely dissected off the liver bed was placed in an Endo-Catch bag and brought out through the epigastric incision. The gallbladder was sent to pathology for further examination. The abdomen was then re-examined. The liver bed was irrigated and suctioned dry. No bleeding or bile leak could be identified. A large Javier-Villa drain was then placed at the gallbladder fossa and brought out through the lateral trocar site. This was secured to the skin using a 3-0 nylon suture. This was connected to a small bulb suctioned. CO2 was then evacuated and all trocars removed. Fascia was closed at the epigastric incision using a [id number] 0 Polysorb suture. Skin was closed in all incisions using a subcuticular 4 0 Polysorb suture by both the surgeon and rehabilitation assistant. Sterile dressings consisting of Steri-Strips, 2 x 2 gauze, and Tegaderm were then applied. The patient tolerated the procedure well. Sponge instrument and needle counts reported as correct. The patient was transferred to PACU in stable condition.
[2024-04-03] MEDS: fentaNYL citrate/PF 100 MCG/2 ML VIAL 25 MCG IVPUSH (17:10)
[2024-04-03] MEDS: Atorvastatin Calcium 80 MG TABLET PO (19:58)
[2024-04-03] MEDS: Famotidine 20 MG TABLET 40 MG PO (19:58)
[2024-04-03] MEDS: oxyCODONE HCl Immed Release 5 MG TABLET PO (21:37)
[2024-04-04 03:14] VITALS: BP 119/81; PULSE 93; RESP 18; TEMP 36.7; O2SAT 94
[2024-04-04] MEDS: 0.9 % Sodium Chloride Flush 3 ML SYRINGE IVFLUSH (03:21)
[2024-04-04] MEDS: Piperacillin Sodium/Tazobactam 3.375 GM in 0.9 % Sodium Chloride 50 ML IV ×2 (03:21→10:17)
[2024-04-04] MEDS: 0.9 % Sodium Chloride 1,000 ML 100 ML IVCONT (03:22)
[2024-04-04] MEDS: oxyCODONE HCl Immed Release 5 MG TABLET PO ×3 (03:34→14:18)
[2024-04-04] MEDS: Omeprazole 40 MG CAPSULE.DR PO (05:19)
[2024-04-04 06:38] LABS: MANUAL DIFF FLAG NO
[2024-04-04 06:53] LABS: Basophils Percent Auto 0.1 % (0-2); Hematocrit 42.8 % (42.0-52.0); Hemoglobin 14.4 g/dl (14.0-18.0); Imm Gran Abs Auto 0.09 X10*3/uL (0.00-0.03); Imm Gran Pct Auto 0.6 % (0.0-0.4); Lymphocytes Percent Auto 6.1 % (20-40); Mean Corpuscular HGB Conc 33.6 g/dl (31.0-36.0); Mean Corpuscular Hemoglobin 31.2 pg (27.0-33.0); Mean Corpuscular Volume 92.6 fL (80.0-98.0); Mean Platelet Volume 11.4 fL (9.4-12.4); Monocytes Absolute Auto 1.2 X10*3/uL (0.1-1.2); Monocytes Percent Auto 7.8 % (2-11); Neutrophils Absolute Auto 13.5 x10*3/uL (2.0-8.3); Neutrophils Percent Auto 85.4 % (45-73); Platelet Count 244 X10*3/uL (160-400); Red Blood Count 4.62 X10*6/uL (4.60-5.80); Red Cell Distribution Width 13.2 % (11.0-16.0); White Blood Count 15.8 X10*3/uL (4.8-10.8)
--- NOTE | 2024-04-04 07:45 | PM.PNGS ---
Subjective Subjective Date of Service: 04/04/24 <Chloe Vidales PA-C - Last Filed: 04/04/24 07:48> 04/04/24 <Kameron Velásquez MD - Last Filed: 04/04/24 08:12> Interval history: Sore at incision sites, otherwise feeling much improved. Ambulated for 40 minutes this morning. Tolerating solid diet. Would like to go home. <Chloe Vidales PA-C - Last Filed: 04/04/24 07:48> Physical Exam Vital Signs: Vital Signs: Last Vital Signs Temp 98.1 F 04/04/24 03:14 Pulse 93 04/04/24 03:14 Resp 18 04/04/24 03:14 BP 119/81 04/04/24 03:14 Pulse Ox 94 04/04/24 03:14 O2 Del Method Room Air 04/04/24 03:14 O2 Flow Rate 3 04/03/24 17:25 BMI result Body Mass Index 29.8 <Chloe Vidales PA-C - Last Filed: 04/04/24 07:48> Const: General: comfortable, no acute distress and alert <Chloe Vidales PA-C - Last Filed: 04/04/24 07:48> Orientation/consciousness: patient oriented x3 <PATRICIA Redmond Last Filed: 04/04/24 07:48> Resp: Effort & Inspection: normal respiratory effort <PATRICIA Redmond Last Filed: 04/04/24 07:48> GI: Other: DONNA drain scant sanguineous output <Chloe Vidales PA-C - Last Filed: 04/04/24 07:48> Inspection: Yes distended (mild) and Yes incision (dressings c/d/i) <PATRICIA Redmond Last Filed: 04/04/24 07:48> Palpation (GI): Soft to palpation, Tenderness to palpation present (GI) (mild incisional) and no guarding <PATRICIA Redmond Last Filed: 04/04/24 07:48> Skin: General skin exam: no rashes or lesions noted and no jaundice <PATRICIA Redmond Filed: 04/04/24 07:48> Neuro: General: patient oriented x3 <Chloe Vidales PA-C - Last Filed: 04/04/24 07:48> Objective Data Active Medications Acetaminophen (Acetaminophen 325 Mg Tablet) 650 mg PO Q6H PRN PRN Reason: Pain, Mild (Pain Scale 1-3) Al Hydroxide/Mg Hydroxide (Magnesium Hydrox/Alum Hydrox 30 Ml Oral.Susp) 30 ml PO Q6H PRN PRN Reason: heartburn Atorvastatin Calcium (Atorvastatin Calcium 80 Mg Tablet) 80 mg PO DAILY [facility] Last Admin: 04/03/24 19:58 Dose: 80 mg Documented By: SAMIRA Docusate Sodium (Docusate Sodium 100 Mg Capsule) 100 mg PO BID PRN PRN Reason: Constipation Famotidine (Famotidine 20 Mg Tablet) 40 mg PO BEDTIME [facility] Last Admin: 04/03/24 19:58 Dose: 40 mg Documented By: SAMIRA Hydromorphone HCl (Hydromorphone Hcl 0.5 Mg/0.5 Ml Syringe) 0.5 mg IVPUSH Q4H PRN; Protocol PRN Reason: Pain, Severe (Pain Scale 7-10) Sodium Chloride (Ns) 1,000 mls @ 100 mls/hr IVCONT .Q10H [facility] Last Admin: 04/04/24 03:22 Dose: 100 mls/hr Documented By: KANDI Piperacillin Sod/Tazobactam (Sod 3.375 gm/ Sodium Chloride) 50 mls @ 100 mls/hr IV Q6H [facility] Last Infusion: 04/04/24 04:06 Dose: Infused Documented By: KANDI Lisinopril (Lisinopril 20 Mg Tablet) 20 mg PO DAILY [facility]; Protocol Melatonin (Melatonin 3 Mg Tablet) 6 mg PO BEDTIME PRN PRN Reason: insomnia Omeprazole (Omeprazole 40 Mg Capsule.Dr) 40 mg PO DAILY@0630 [facility] Last Admin: 04/04/24 05:19 Dose: 40 mg Documented By: KANDI Ondansetron HCl (Ondansetron Hcl 4 Mg/2 Ml Vial) 4 mg IVPUSH Q8H PRN PRN Reason: Nausea and Vomiting Oxycodone HCl (Oxycodone Hcl Immed Release 5 Mg Tablet) 5 mg PO Q4H PRN PRN Reason: Pain, Moderate(Pain Scale 4-6) Last Admin: 04/04/24 03:34 Dose: 5 mg Documented By: KANDI Sodium Chloride (0.9 % Sodium Chloride Flush 3 Ml Syringe) [facility] Last Admin: 04/04/24 03:21 Dose: 3 ml Documented By: KANDI <Chloe Vidales PA-C - Last Filed: 04/04/24 07:48> Labs CBC & Chem 7: 04/04/24 05:54 04/03/24 10:17 <Chloe Vidales PA-C - Last Filed: 04/04/24 07:48> Labs: Laboratory Results - last 24 hr 04/03/24 04/04/24 10:17 05:54 MCV 92.6 MCH 31.2 MCHC 33.6 RDW 13.2 Plt Count 244 MPV 11.4 Immature Gran % (Auto) 0.6 H Neut % (Auto) 85.4 H Lymph % (Auto) 6.1 L [place] % (Auto) 7.8 Eos % (Auto) 0.0 Baso % (Auto) 0.1 Lymph # (Auto) 1.0 L [place] # (Auto) 1.2 Eos # (Auto) 0.0 Baso # (Auto) 0.0 Abs Immat Gran (auto) 0.09 H Absolute Neuts (auto) 13.5 H Absolute Nucleated RBC 0.000 Nucleated RBC % (auto) 0.0 Estim Creat Clear Calc 98.3 Estimated GFR > 60 <Chloe Vidales PA-C - Last Filed: 04/04/24 07:48> Procedures Date of Service Date of Service: 04/04/24 <Chloe Vidales PA-C - Last Filed: 04/04/24 07:48> 04/04/24 <Kameron Velásquez MD - Last Filed: 04/04/24 08:12> Progress Note: A&P Assessment and plan (1) Acute cholecystitis: Status: Acute <PATRICIA Redmond Last Filed: 04/04/24 07:48> (2) S/P laparoscopic cholecystectomy: Status: Acute <PATRICIA Redmond Last Filed: 04/04/24 07:48> Assessment and Plan: POD #2 s/p lap kacy. Doing well post op, good pain control, tolerating solid diet. Hemodynamically stable. Abd benign with appropriate post op tenderness, dressings c/d/i. DONNA drain scant output. Stable for dc to home today. Will remove drain prior. F/u in office in 1 week. Patient comfortable with plan. <Chloe Vidales PA-C - Last Filed: 04/04/24 07:48> POD #1 s/p lap kacy. Doing well post op, good pain control, tolerating solid diet. Hemodynamically stable. Abd benign with appropriate post op tenderness, dressings c/d/i. DONNA drain scant output. Stable for dc to home today. Will remove drain prior. F/u in office in 1 week. Patient comfortable with plan. Agree with the above assessment and plan. Patient is reporting incisional pain but otherwise feels much improved. He was able to tolerate a regular diet without nausea or vomiting. He is ambulating well. I would agree he is ready for discharge. Follow up in the office in 1 week. <Kameron Velásquez MD - Last Filed: 04/04/24 08:12> Time Spent With Patient Time: Total time managing care of this patient today ____ minutes. <Chloe Vidales PA-C - Last Filed: 04/04/24 07:48> Quality Stroke Does the patient have a stroke diagnosis?: No <Chloe Vidales PA-C - Last Filed: 04/04/24 07:48> VTE Prior VTE?: No <Chloe Vidales PA-C - Last Filed: 04/04/24 07:48> VTE Risk Level:: Surgical - low <PATRICIA Redmond Last Filed: 04/04/24 07:48> VTE Device Contraindication: N/A - Device Ordered <Chloe Vidales PA-C - Last Filed: 04/04/24 07:48> VTE Drug Contraindication: N/A - Med Ordered <Chloe Vidales PA-C - Last Filed: 04/04/24 07:48>
[2024-04-04 08:00] VITALS: BP 139/79; PULSE 88; RESP 20; TEMP 36.2; O2SAT 94
[2024-04-04 08:20] VITALS: BP 139/79
[2024-04-04] MEDS: lisinopriL 20 MG TABLET PO (08:20)
[2024-04-04] MEDS: Atorvastatin Calcium 80 MG TABLET PO (08:20)
--- NOTE | 2024-04-04 09:04 | HO.POSTANES ---
Post Anesthesia Evaluation Post Anesthesia Evaluation Date of Service: 04/04/24 Vital Signs: Vital Signs Temp Pulse Resp BP Pulse Ox O2 Del Method 04/04/24 08:20 139/79 04/04/24 08:00 97.2 F 88 20 139/79 94 Room Air 04/04/24 03:14 98.1 F 93 18 119/81 94 Room Air Anesthesia: General Endotracheal-GETA Mental Status: Awake Pain Control: Satisfactory Nausea/Vomiting: None Hydration: Adequate Anesthesia-Related Issues: No Anes. Related Issues
--- NOTE | 2024-04-04 10:24 | MHC.CM.PN ---
Patient is discharged today to home self care. Patients will provide transportation home.
--- NOTE | 2024-04-04 14:26 | PM.DS ---
DS: Providers Provider Date of Service: 04/04/24 Date of admission: 04/03/24 06:38 Date of discharge: 04/04/24 Primary care physician: MAXIME Jarrett Attending physician on admission: Darnell Walker Attending physician on discharge: Kameron Velásquez DS: Diagnosis Discharge Diagnosis (1) Acute cholecystitis: Status: Acute (2) S/P laparoscopic cholecystectomy: Status: Acute DS: Summary Hospital Course Hospital Course: HPI AT ADMISSION: Harris Zepeda is a 63 year old male who presents with progressive worsening right upper quadrant pain over the last 2 days time. Because of worsening of symptoms, he presents to the emergency department. Extensive workup including sonogram demonstrates findings consistent with acute cholecystitis. Patient has never been jaundiced before. He otherwise has no prior GI issues or complaints. Chart was reviewed and patient evaluated. HOSPITAL COURSE: The patient was admitted to the surgical service for further treatment of the acute cholecystitis. Treatment options were reviewed including non operative with antibiotic treatment verses cholecystectomy. He elected to proceed with surgery. He was added onto the operative schedule for that day. On 04/03/24, a laparoscopic cholecystectomy was performed by Dr. Velásquez without complication. He was found to have an acutely inflamed and obstructed gallbladder, with purulent bile and surrounding phlegmon. DONNA drain was placed intraoperatively. He tolerated the procedure well. He had an uncomplicated recovery course. On POD #1, he felt well and was tolerating a solid diet without nausea or vomiting and had good pain control. He was ambulating without difficulty. His abdomen was benign with clean and intact dressings with appropriate post op tenderness. DONNA drain had scant sanguineous output and was removed. He felt ready for discharge to home. He was discharged to home on 04/04/24 in stable condition. He is to follow up in the office in 1 week. Status at Discharge Functional status at discharge: independent ambulation Overall status at discharge: patient is progressing back to baseline Time Attestation Discharge Coordination Time (in mins): 35 Quality: Safe Use of Opioids Does Pt have an Active Cancer Diagnosis on the Problem List?: No Quality: Stroke Does the patient have a stroke diagnosis?: No Physical Exam Vital Signs: Vital Signs: Last Vital Signs Temp 97.2 F 04/04/24 08:00 Pulse 88 04/04/24 08:00 Resp 20 04/04/24 08:00 BP 139/79 04/04/24 08:20 Pulse Ox 94 04/04/24 08:00 O2 Del Method Room Air 04/04/24 08:00 O2 Flow Rate 3 04/03/24 17:25 BMI result Body Mass Index 29.8 Const: General: comfortable, no acute distress and alert Orientation/consciousness: patient oriented x3 Resp: Effort & Inspection: normal respiratory effort GI: Inspection: Yes distended (softly ) and Yes incision (dressings c/d/i) Palpation (GI): Soft to palpation, Tenderness to palpation present (GI) (mild incisional) and no guarding Skin: General skin exam: no rashes or lesions noted and no jaundice Neuro: General: patient oriented x3 DS: Data Data Completed and Pending Completed studies during hospitalization [Text1]: 04/03/24 15:35 Surgical [PTH] Routine Gallbladder, cholecystectomy: Acute and chronic cholecystitis with mucosal ulceration; cholelithiasis. Discharge Plan Discharge Anticipated Discharge Date/Time: 04/04/24 07:49 Patient Disposition: Home, Self-Care Discharge Diagnosis: acute cholecystitis, s/p laparoscopic cholecystectomy Referrals: Ronit Bray PA [Primary Care Provider] - 1 Week Kameron Velásquez MD [Physician] - 1 Week Discharge Medications: New docusate sodium [Colace] 100 mg capsule 100 mg PO BID PRN (Reason: constipation) Qty: 30 0RF oxycodone 5 mg tablet 5 mg PO Q4H PRN (Reason: pain (scale score 7-10)) Qty: 24 0RF Rx Instructions: Partial Fill upon patient request. Continued atorvastatin 80 mg tablet 80 mg PO DAILY famotidine 40 mg tablet 40 mg PO BEDTIME omeprazole 40 mg capsule,delayed release(DR/EC) 40 mg PO DAILY lisinopril-hydrochlorothiazide 20-25 mg tablet 1 tab PO DAILY aspirin 81 mg Tablet,Delayed Release (Dr/Ec) 81 mg PO DAILY Discharge Orders: Discharge Order (Routine); Ordered 04/04/24 Ordered By: Chloe Vidales Diet: Low fat, low cholesterol Activity on Discharge: No heavy lifting Stand Alone Forms: Patient Portal Discharge page Print Language: Kiswahili Activity Restrictions/Additional Instructions: If the incision area is tender, you may apply an ice pack for short intervals (No more than 20 minutes on, followed by at least 20 minutes off). Do not apply heat. Do not use creams, lotions, or topical antibiotics. Ok to shower. Remove clear dressings 3 days following your procedure. You have steri strips (small white cloth strips) covering your incision- these will fall off ~1 week. No heavy lifting (>10lbs) or strenuous activity! Take Tylenol Extra-strength 1-2 tabs every 6 hours for the first day, then as needed. Oxycodone every 6-8 hours as needed for pain. Colace 100 mg every day as needed for constipation. Follow up in office with Dr. Velásquez in 1 week. ([phone]) Call Your Doctor If: -Your temperature exceeds 101.5? F -You experience excessive pain or swelling -You have an unexpected reaction to medication -You have excessive bleeding -You experience continued vomiting/nausea -Your incision begins to separate -Your incision shows signs of infection such as increased redness, swelling, excessive pain, drainage (light blood or clear fluid is normal) or heat Care Plan Goals: Return to baseline health and resume normal activities following recovery period. Health Concerns: acute cholecystitis Plan of Treatment: s/p laparoscopic cholecystectomy f/u in office in 1 week Assessment: Doing well post op. Discharge Date/Time: 04/04/24 14:41
== END 2024-04-04 14:41 | disposition home or self-care (01) | DRG 263 ==
LOC: HO.ED 04:48 → HO.EDOVER 06:49 → HO.S3 17:25
PROVIDERS: Physician Assistant Surgical; Surgery; Admitting Provider Surgery; Emergency Provider Emergency Medicine; PCP Physician Assistant; Visit Provider Surgery
PROC: 0FT44ZZ Resection of Gallbladder, Percutaneous Endoscopic Approach (ICD-10-PCS; CPT 47562; principal; 2024-04-03 14:00)
DX: K80.00 Calculus of gallbladder with acute cholecystitis without obstruction (principal); I10 Essential (primary) hypertension; Z79.82 Long term (current) use of aspirin; Z79.899 Other long term (current) drug therapy
CPT/HCPCS: 47562; 36415; 74177; 76705; 80048; 80076; 80307; 82565; 83690; 84484; 85025; 85610; 88304; 93005; 99221; 99285; J1100; J2250; J2270; J2405; J2543; J2704; J2795; J3010; Q9967

== ENCOUNTER → 2024-04-03 00:47 | Outpatient (BNV) | payer OTHER, SELFPAY | PROVIDERS: Admitting Provider Surgery; Emergency Provider Emergency Medicine; Visit Provider Internal Medicine Cardiovascular Disease | DX: R07.9 Chest pain, unspecified (principal) | CPT/HCPCS: 93010 ==

== ENCOUNTER → 2024-04-03 06:38 | Outpatient (BNV) | payer OTHER, SELFPAY | PROVIDERS: Admitting Provider Surgery; Emergency Provider Emergency Medicine; Visit Provider Surgery | DX: K81.0 Acute cholecystitis (principal); Z90.49 Acquired absence of other specified parts of digestive tract | CPT/HCPCS: 47562; 99024; 99222; 99499 ==

== ENCOUNTER 2024-04-11 13:11 | Outpatient (AMB) | payer OTHER, SELFPAY ==
--- NOTE | 2024-04-11 13:11 | MHC.OFFVIS ---
Intake Visit Reasons: S/p lap kacy Intake Note: Patient here s/p lap kacy. Reports incisions healing well. Patient c/o: tenderness worse at night. Taking rx pain meds at night to help sleep. Secretary Required: No Accompanied by: Self / Same As Patient Allergies lamictal Allergy (Severe, Uncoded 04/03/24 01:29) Rash HPI Comments Details: 63-year-old male patient returning 1 week following a laparoscopic cholecystectomy for acute cholecystitis. He was found to have a markedly inflamed gallbladder and was observed overnight with a Javier-V[place] drain in place. The Javier-Villa drain was removed on pod 1 he was subsequently discharged home. Since discharge he did have some pain mainly at the drain site in the right upper quadrant. Denies any significant pain in the other incisions. He denies nausea, vomiting, fever or chills. Overall he feels much improved. [facility] Medical History Finger abrasion HTN (hypertension) Surgical History Hx laparoscopic cholecystectomy (04/03/24) Social History Household Members: Spouse Housing: House Do you presently have visiting nurse or other home services: No Alcohol intake: current Patient Tobacco Use Status: Never used Tobacco service: No Physical Exam Const General: no acute distress Nutritional Appearance: well nourished Orientation/consciousness: patient oriented x3 Limitations: no limitations Resp Effort & Inspection: normal respiratory effort GI Other: Soft, nondistended, nontender, well-healed trocar incisions in the upper abdomen. Drain site is clean without hematoma or seroma. Skin General skin exam: no rashes or lesions noted Neuro General: patient oriented x3 Assessment & Plan Assessment & Plan (1) S/P laparoscopic cholecystectomy: Code(s): Z90.49 - Acquired absence of other specified parts of digestive tract Category: Surgical (2) Acute cholecystitis: Code(s): K81.0 - Acute cholecystitis Category: Medical Plan 63-year-old male patient returning 1 week following laparoscopic cholecystectomy. He tolerated the procedure well and his wounds are healing nicely. He should continue to avoid fatty fried foods for the next month. He should continue to avoid lifting greater than 10 lb for the next week. Should follow up as needed. Coding Level of Care Code Global (11886) Diagnoses S/P laparoscopic cholecystectomy Z90.49 Acute cholecystitis K81.0
== END 2024-04-11 13:15 | disposition home or self-care (01) ==
PROVIDERS: PCP Physician Assistant; Visit Provider Surgery
DX: Z90.49 Acquired absence of other specified parts of digestive tract (principal); K81.0 Acute cholecystitis
CPT/HCPCS: 99024

== ENCOUNTER → 2024-04-11 13:11 | Outpatient (BNVA) | payer OTHER, SELFPAY | PROVIDERS: PCP Physician Assistant; Visit Provider Surgery | DX: K81.0 Acute cholecystitis (principal); Z90.49 Acquired absence of other specified parts of digestive tract | CPT/HCPCS: 99212 ==

== ENCOUNTER 2024-06-01 07:29 | Emergency (ER) | payer OTHER, SELFPAY ==
--- NOTE | ~2024-06-01 | CT_ITS ---
EXAMINATION: CT ABDOMEN AND PELVIS WITH CONTRAST CLINICAL INFORMATION: Right-sided abdominal pain COMPARISON: CT and ultrasound from 04/03/2024 TECHNIQUE: Multidetector volumetric images were obtained from the superior aspect of the liver through the pubic symphysis following administration 85 mL of Omnipaque 350 intravenous contrast. Sagittal and coronal reformatted images were obtained on the technologist's workstation. Oral contrast: No This CT examination was performed using dose optimization techniques as appropriate, variously including the following: *Automated exposure control *Adjustment of mA and/or kV according to patient size (this includes techniques or standardized protocols for targeted exams where dose is matched to indication/reason for exam; i.e. extremities or head) *Use of iterative reconstruction technique DLP: 626 mGy-cm FINDINGS: LUNG BASES: The visualized lung bases are unremarkable. LIVER, GALLBLADDER, AND BILIARY TREE: Liver is decreased in density consistent with hepatic steatosis. Status post cholecystectomy. There is a subcapsular calcification with surrounding hyperemia within the right lobe of the liver posteriorly. Calcification measures 8 mm in size with the surrounding area of hyperemia measuring approximately 2.1 x 1.8 x 1.9 cm. This was not present on the prior exam. Given that the prior calcified stones seen on the CT scan and interval cholecystectomy, findings could represent a dropped gallstone with reactive inflammatory stranding PANCREAS: Unremarkable. SPLEEN: Unremarkable. ADRENAL GLANDS: Unremarkable. KIDNEYS AND URETERS: The kidneys are normal in size, shape, and attenuation. No hydronephrosis, hydroureter, or calculi seen. No perinephric stranding. BLADDER: Unremarkable. GASTROINTESTINAL TRACT: The small bowel are unremarkable. The appendix is unremarkable. Diverticula seen within the sigmoid colon without evidence of acute diverticulitis ABDOMINAL WALL: No significant hernia is appreciated. LYMPH NODES: Multiple lymph nodes seen in the chet hepatis with punctate areas of calcification which is unchanged compared to the prior exam. VASCULAR: Unremarkable. PELVIC VISCERA: Unremarkable. OSSEOUS STRUCTURES: Unremarkable. CT/CT abdomen pelvis w IV con IMPRESSION: 1. Status post cholecystectomy. There is a subcapsular calcification with surrounding hyperemia within the right lobe of the liver posteriorly. This was not present on the prior exam. Given that the prior calcified stones seen on the CT scan and interval cholecystectomy, findings could represent a dropped gallstone with reactive inflammatory stranding. No evidence of abscess 2. Hepatic steatosis. 3. Diverticulosis.
[2024-06-01 07:39] VITALS: BP 128/81; PULSE 84; RESP 18; TEMP 36.1; O2SAT 97; BMI 29.8
[2024-06-01 08:10] LABS: MANUAL DIFF FLAG NO
[2024-06-01 08:15] LABS: Basophils Absolute Auto 0.1 X10*3/uL (0.0-0.2); Basophils Percent Auto 0.8 % (0-2); Eosinophils Absolute Auto 0.4 X10*3/uL (0.0-0.4); Eosinophils Percent Auto 4.7 % (0-4); Hematocrit 44.2 % (42.0-52.0); Hemoglobin 14.8 g/dl (14.0-18.0); Imm Gran Abs Auto 0.07 X10*3/uL (0.00-0.03); Imm Gran Pct Auto 0.8 % (0.0-0.4); Lymphocytes Absolute Auto 1.4 X10*3/uL (1.2-4.9); Lymphocytes Percent Auto 16.2 % (20-40); Mean Corpuscular HGB Conc 33.5 g/dl (31.0-36.0); Mean Corpuscular Hemoglobin 30.5 pg (27.0-33.0); Mean Corpuscular Volume 90.9 fL (80.0-98.0); Mean Platelet Volume 10.6 fL (9.4-12.4); Monocytes Absolute Auto 1.1 X10*3/uL (0.1-1.2); Monocytes Percent Auto 11.9 % (2-11); Neutrophils Absolute Auto 5.9 x10*3/uL (2.0-8.3); Neutrophils Percent Auto 65.6 % (45-73); Platelet Count 275 X10*3/uL (160-400); Red Blood Count 4.86 X10*6/uL (4.60-5.80); Red Cell Distribution Width 13.7 % (11.0-16.0); White Blood Count 8.9 X10*3/uL (4.8-10.8)
[2024-06-01 08:28] LABS: Appearance Urine Clear; Color Urine Dark Yellow; Glucose Urine UA Negative (Negative); Leukocyte Esterase Urine Negative (Negative); Nitrite Urine Negative (Negative); PH 5.5 (5.0-9.0); Specific Gravity - Urine 1.025 (1.005-1.025); Urine Blood Negative (Negative); Urine Ketones Trace mg/dL (Negative); Urine Protein Trace mg/dL (Neg-Trace)
[2024-06-01 08:56] LABS: Alanine Aminotransferase 82 U/L (0-40); Albumin Level 4.1 g/dL (3.5-5.0); Alkaline Phosphatase 78 U/L (39-117); Anion Gap 15 (12-20); Aspartate Amino Transferase 46 U/L (5-37); Bilirubin Total 0.6 mg/dL (0.0-1.0); Blood Urea Nitrogen 17 mg/dL (9-16); Calcium 9.7 mg/dL (8.4-10.2); Carbon Dioxide 22 mmol/L (22-29); Chloride 106 mmol/L (96-108); Creatinine Clr Calc Pharmacy 89.4; Estimated Glomerular Filt Rate > 60; Glucose Random 110 mg/dL (60-115); Lipase 44 U/L (8-78); Potassium 4.2 mmol/L (3.3-5.1); Sodium 139 mmol/L (135-145); Total Protein 7.9 g/dL (6.5-8.0)
--- NOTE | 2024-06-01 09:07 | ED_ITS ---
HPI - Abdominal Pain General Chief Complaint: Abdominal Pain Stated Complaint: rt side lower abd pain Time Seen by Provider: 06/01/24 08:07 History of Present Illness HPI narrative: Patient is a 63 year old male presents today with having right-sided abdominal pain. The pain is dull in nature. It has been on an off. Gotten worse after a [place] cheese and ham sandwich. Patient denies any fever chills. Had a cholecystectomy done in March. No change in bowel movement. No pain on urination. No history of kidney stone. No history of appendectomy in the past. Patient is from home. Still hungry. No change in appetite Related Data Home Medications ?Medication ?Instructions ?Recorded ?Confirmed aspirin 81 mg tablet,delayed 81 mg PO DAILY 04/03/24 04/03/24 release atorvastatin 80 mg tablet 80 mg PO DAILY 04/03/24 04/03/24 famotidine 40 mg tablet 40 mg PO BEDTIME 04/03/24 04/03/24 lisinopril 20 1 tab PO DAILY 04/03/24 04/03/24 mg-hydrochlorothiazide 25 mg tablet omeprazole 40 mg capsule,delayed 40 mg PO DAILY 04/03/24 04/03/24 release Previous Rx's ?Medication ?Instructions ?Recorded docusate sodium 100 mg capsule 100 mg PO BID PRN constipation #30 04/04/24 (Colace) caps oxycodone 5 mg tablet 5 mg PO Q4H PRN pain (scale score 04/09/24 7-10) #14 tabs Allergies Allergy/AdvReac Type Severity Reaction Status Date / Time lamictal Allergy Severe Rash Uncoded 06/01/24 07:41 Review of Systems Review of Systems Positive abdominal pain Yes all other systems are reviewed and are negative PMFSH Past Medical History Attestation statement: The following information was validated with the patient. Medical History Finger abrasion HTN (hypertension) Surgical History Hx laparoscopic cholecystectomy (04/03/24) Social History Social History Household Members: Spouse Housing: House Do you presently have visiting nurse or other home services: No Alcohol intake: current Patient Tobacco Use Status: Never used Tobacco Advance Directives: No service: No Physical Exam ED Vital Signs: Vital Signs - 24 hr 06/01/24 07:39 Temperature 96.9 F Pulse Rate 84 Respiratory Rate 18 Blood Pressure 128/81 Pulse Oximetry 97 Oxygen Delivery Method Room Air BMI result Body Mass Index 29.8 Appearance: Alert. Oriented X3. No acute distress. Eyes: Pupils equal, round and reactive to light. ENT: Pharynx normal. Neck: Normal inspection. Neck supple. No lymph nodes noted. No crepitus CVS: Normal heart rate and rhythm. Pulses normal. Normal S1 and S2 Respiratory: No respiratory distress. Breath sounds normal. No Wheezing. No rales Abdomen: Soft and nontender. No rigidity. No distention. good BS x4 Skin: Skin warm and dry. Normal skin color. Normal skin turgor. Extremities: No lower extremity edema. Neurovascular intact to all extremities. No Lacerations. No Rash Neuro: Oriented X 3. No motor deficit. No sensory deficit. Moving all extermities. No slurred speech Medical Decision Making Medical Decision Making [facility] Narrative: Patient well-appearing no acute distress. CT scan of the abdomen showed no obstruction no abscess no perforation there is subcapsular calcification question secondary to a dropped gallstone. Patient is LFTs are essentially normal. Lipase is normal no evidence for pancreatitis. White count is normal. Patient is urine showed no signs of infection. CT scan of the abdomen did not show any evidence of kidney stone. Did not show any evidence of appendicitis. He is well-appearing will discharge patient home close follow-up on an outpatient basis. Differential Diagnosis Differential Diagnoses: The differential diagnosis associated with the presentation includes Admission/Observation Consideration of admission/observation: Escalation of care including admission/observation considered Lab Data [facility] Lab Attestation statement: I reviewed the patient's lab results. 06/01/24 07:59 06/01/24 07:59 Labs: Lab Results 06/01/24 06/01/24 Range/Units 07:59 08:10 WBC 8.9 (4.8-10.8) X10*3/uL RBC 4.86 (4.60-5.80) X10*6/uL Hgb 14.8 (14.0-18.0) g/dl Hct 44.2 (42.0-52.0) % MCV 90.9 (80.0-98.0) fL MCH 30.5 (27.0-33.0) pg MCHC 33.5 (31.0-36.0) g/dl RDW 13.7 (11.0-16.0) % Plt Count 275 (160-400) X10*3/uL MPV 10.6 (9.4-12.4) fL Immature Gran % (Auto) 0.8 H (0.0-0.4) % Neut % (Auto) 65.6 (45-73) % Lymph % (Auto) 16.2 L (20-40) % Baker % (Auto) 11.9 H (2-11) % Eos % (Auto) 4.7 H (0-4) % Baso % (Auto) 0.8 (0-2) % Lymph # (Auto) 1.4 (1.2-4.9) X10*3/uL Baker # (Auto) 1.1 (0.1-1.2) X10*3/uL Eos # (Auto) 0.4 (0.0-0.4) X10*3/uL Baso # (Auto) 0.1 (0.0-0.2) X10*3/uL Abs Immat Gran (auto) 0.07 H (0.00-0.03) X10*3/uL Absolute Neuts (auto) 5.9 (2.0-8.3) x10*3/uL Absolute Nucleated RBC 0.000 (0.0-0.012) X10*3/uL Nucleated RBC % (auto) 0.0 (0.0-0.2) /100WBC Sodium 139 (135-145) mmol/L Potassium 4.2 (3.3-5.1) mmol/L Chloride 106 (96-108) mmol/L Carbon Dioxide 22 (22-29) mmol/L Anion Gap 15 (12-20) BUN 17 H (9-16) mg/dL Creatinine 1.00 (0.5-1.4) mg/dL Estim Creat Clear Calc 89.4 Estimated GFR > 60 Random Glucose 110 (60-115) mg/dL Calcium 9.7 (8.4-10.2) mg/dL Total Bilirubin 0.6 (0.0-1.0) mg/dL AST 46 H (5-37) U/L ALT 82 H (0-40) U/L Alkaline Phosphatase 78 (39-117) U/L Total Protein 7.9 (6.5-8.0) g/dL Albumin 4.1 (3.5-5.0) g/dL Lipase 44 (8-78) U/L Urine Color Dark Yellow Urine Appearance Clear Urine pH 5.5 (5.0-9.0) Ur Specific [place] 1.025 (1.005-1.025) Urine Protein Trace (Neg-Trace) mg/dL Urine Glucose (UA) Negative (Negative) mg/dL Urine Ketones Trace (Negative) mg/dL Urine Blood Negative (Negative) Urine Nitrite Negative (Negative) Ur Leukocyte Esterase Negative (Negative) Radiology Impression Discussion of test interpretation with radiology: I have reviewed the radiologist's reading. External Record Review External record reviewed: Office record Medications Administered Discontinued Medications Generic Name Dose Route Start Last Admin Trade Name Freq PRN Reason Stop Dose Admin Iohexol 100 ml 06/01/24 10:23 06/01/24 10:23 Iohexol 350 Mg/Ml 100 Ml Infus..Btl IV 06/01/24 10:24 85 ml ONCE ONE Administration Discharge Plan Discharge Clinical Impression: Abdominal pain Patient Disposition: Home, Self-Care Instructions: Abdominal Pain (ED) Prescriptions: No Action oxycodone 5 mg tablet 5 mg PO Q4H PRN (Reason: pain (scale score 7-10)) Qty: 14 0RF Rx Instructions: Partial Fill upon patient request. atorvastatin 80 mg tablet 80 mg PO DAILY famotidine 40 mg tablet 40 mg PO BEDTIME omeprazole 40 mg capsule,delayed release(DR/EC) 40 mg PO DAILY lisinopril-hydrochlorothiazide 20-25 mg tablet 1 tab PO DAILY aspirin 81 mg Tablet,Delayed Release (Dr/Ec) 81 mg PO DAILY docusate sodium [Colace] 100 mg capsule 100 mg PO BID PRN (Reason: constipation) Qty: 30 0RF Referrals: Kameron Velásquez MD [Physician] - 06/04/24 Ronit Bray PA [Primary Care Provider] - 06/04/24 Print Language: [place]
[2024-06-01] MEDS: iohexoL 350 MG/ML 100 ML INFUS..BTL IV (10:23)
[2024-06-01 12:21] VITALS: BP 128/76; PULSE 80; RESP 16; O2SAT 97
[2024-06-01 12:28] VITALS: BP 128/76; PULSE 80; RESP 16; TEMP 36.1; O2SAT 97
== END 2024-06-01 12:29 | disposition home or self-care (01) ==
PROVIDERS: Emergency Provider Emergency Medicine Emergency Medical Services; PCP Physician Assistant
DX: R10.31 Right lower quadrant pain (principal); I10 Essential (primary) hypertension; Z90.49 Acquired absence of other specified parts of digestive tract; Z79.899 Other long term (current) drug therapy
CPT/HCPCS: 36415; 74177; 80053; 81003; 83690; 85025; 99283; 99284; Q9967